=== PATIENT | male | born 1960 | race Caucasian/White ===

== ENCOUNTER → 2016-10-14 | Outpatient (CLI) | payer MEDICARE ==
[2016-10-14 12:29] LABS: ALBUMIN 4.1 GM/DL (3.2-5.2); ALBUMIN/GLOBULIN RATIO 1.41 (1.00-1.93); BILIRUBIN,TOTAL 0.5 MG/DL (0.2-1.0); CALCIUM LEVEL 8.6 MG/DL (8.5-10.1); CREATININE FOR GFR 1.36 MG/DL (0.70-1.30); GLOMERULAR FILTRATION RATE 57.3 (>56); POTASSIUM SERUM 4.7 MEQ/L (3.5-5.1)
== END ==
LOC: M LAB 10:52
PROVIDERS: ATTEND Hospitalist
DX: I10 Essential (primary) hypertension (principal); E03.9 Hypothyroidism, unspecified; E11.9 Type 2 diabetes mellitus without complications; E78.5 Hyperlipidemia, unspecified

== ENCOUNTER 2017-07-06 09:37 | Day surgery (SDC) | payer MEDICARE ==
[~2017-07-06 09:37] MED LIST: LIDOCAINE 2% INJ 100 MG/5 ML SDV (FOR ANES.) As Ordered; PROPOFOL 200 MG/20 ML VIAL As Ordered
[2017-07-06] MEDS ORDERED: NS 1,000 ML IV (10:00)
[2017-07-06] MEDS ORDERED: BISOPROLOL FUMARATE 5 MG TAB As Ordered (10:24)
[2017-07-06] MEDS ORDERED: BISOPROLOL FUMARATE 5 MG TAB PO (10:45)
== END 2017-07-06 12:06 | disposition home or self-care (01) ==
LOC: M OPP 09:37
DX: Z12.11 Encounter for screening for malignant neoplasm of colon (principal); K64.0 First degree hemorrhoids; D12.3 Benign neoplasm of transverse colon; K63.5 Polyp of colon; E10.9 Type 1 diabetes mellitus without complications; E03.9 Hypothyroidism, unspecified; K51.90 Ulcerative colitis, unspecified, without complications; M54.9 Dorsalgia, unspecified; M12.9 Arthropathy, unspecified; F32.9 Major depressive disorder, single episode, unspecified; R06.83 Snoring; I34.0 Nonrheumatic mitral (valve) insufficiency; I51.9 Heart disease, unspecified; E78.00 Pure hypercholesterolemia, unspecified; R01.1 Cardiac murmur, unspecified; Z79.4 Long term (current) use of insulin; Z79.899 Other long term (current) drug therapy; Z86.19 Personal history of other infectious and parasitic diseases; Z95.1 Presence of aortocoronary bypass graft; Z86.79 Personal history of other diseases of the circulatory system; Z87.891 Personal history of nicotine dependence
CPT/HCPCS: 45385

== ENCOUNTER → 2019-08-01 | Outpatient (REF) | payer MEDICARE ==
[~2019-08-01] MED LIST changes: +AMLO5TAB6 PO; +ASPI81TA85 PO; +ATOR40TA75 PO; +BISO5TAB14 PO; +CRES40TA PO; +EZET10TA21 PO; +FIBETAB PO; +GABA600T4 PO; +GEMF600T5 PO; +LANTINJ4 SC; -LIDOCAINE 2% INJ 100 MG/5 ML SDV (FOR ANES.) As Ordered; +LORA10CA PO; +LOSA100T50 PO; +METF10004 PO; +METO1TAB7 PO; +NOVOINJ3 SC; +PREV1CAP PO; -PROPOFOL 200 MG/20 ML VIAL As Ordered; +RANO500T7 PO; +SYNT125T PO; +TIMO0.5S39; +VALS320T3 PO; +VITA-122 PO
[2019-08-01 18:30] LABS: CREATININE, URINE 84.1 MG/DL; MAU/CREAT RATIO 216.4 MCG/MG (0.0-30.0)
== END ==
LOC: M LAB REF 17:35
PROVIDERS: ATTEND Nurse Practitioner Family
DX: E11.65 Type 2 diabetes mellitus with hyperglycemia (principal)

== ENCOUNTER → 2020-08-06 | Outpatient (REF) | payer MEDICARE ==
[~2020-08-06] MED LIST changes: +AMLO1TAB24 PO; -AMLO5TAB6 PO; -ASPI81TA85 PO; +ASPI81TA86 PO
[2020-08-06 17:59] LABS: MAU/CREAT RATIO 247.1 MCG/MG (0.0-30.0)
== END ==
LOC: M LAB REF 16:52
PROVIDERS: ATTEND Nurse Practitioner Family
DX: E11.65 Type 2 diabetes mellitus with hyperglycemia (principal)

== ENCOUNTER → 2021-08-13 | Outpatient (REF) | payer MEDICARE ==
[~2021-08-13] MED LIST changes: +LOSA100T45 PO; -LOSA100T50 PO
[2021-08-13 17:51] LABS: CREATININE, URINE 72.9 MG/DL
== END ==
LOC: M LAB REF 16:47
PROVIDERS: ATTEND Nurse Practitioner Family
DX: E11.65 Type 2 diabetes mellitus with hyperglycemia (principal)

== ENCOUNTER 2022-07-17 08:24 | Day surgery (SDC) | payer MEDICARE ==
[~2022-07-17] VITALS: Ht 177.8 cm; Wt 108.9 kg
[~2022-07-17 08:24] MED LIST changes: +ACET-1349 PO; +BASA100I SC; +BAYE81TA7 PO; +BSS IRRIG/VANCO(10MG)/TOBRA(5MG)/EPINEPH(1:1000-0.5CC)500ML BAG-ORONLY IR ONE; +CEFUROXIME 1MG/0.1ML INTRACAMERAL INJ As Ordered ONE; +CLOP75TA2 PO; +CYCLOPENTOLATE 1% OPHTH SOLN 2ML BTL OD SCH; +HUMA100I3 SC; +INSUHUMDS SC; +IRBE300T12 PO; +LATA0.0015 OU; +LEVO150T7 PO; +LIDOCAINE 1% SDV 5ML VIAL As Ordered ONE; +LIDOCAINE 3.5 % 1ML OPHTH TOPICAL GEL OU ONE; +LOPI600T PO; -LOSA100T45 PO; +LOSA100T46 PO; +MIDAZOLAM INJ 2MG/2ML VIAL As Ordered ONE; +NITR0.4S14 SL; +OFLOXACIN 0.3 % (OCUFLOX) OPTH SOL 5ML OD ONE; +PHENYLEPHRINE 10% OPHTH SOL 5ML OD PRN; +PHENYLEPHRINE 2.5% OPHTH SOL 2ML OD SCH; +ROSU40TA4 PO; +TROPICAMIDE 1% OPHTH SOLN 15ML OD SCH; +XALA0.007 OU; +fentaNYL 100 MCG/2 ML INJECTION As Ordered ONE
[2022-07-17 10:36] VITALS: BP 127/61; TEMP 97.4; O2SAT 94
== END 2022-07-17 10:47 | disposition home or self-care (01) ==
LOC: M SDC 08:24
PROVIDERS: ATTEND Ophthalmology
DX: H25.11 Age-related nuclear cataract, right eye (principal); H40.1111 Primary open-angle glaucoma, right eye, mild stage; Z95.5 Presence of coronary angioplasty implant and graft; I25.2 Old myocardial infarction; I25.10 Atherosclerotic heart disease of native coronary artery without angina pectoris; E11.9 Type 2 diabetes mellitus without complications; Z87.891 Personal history of nicotine dependence; Z79.899 Other long term (current) drug therapy
CPT/HCPCS: 66984; C1783; J0697; J2250; J3010; V2632

== ENCOUNTER 2022-08-20 08:46 | Day surgery (SDC) | payer MEDICARE ==
[~2022-08-20] VITALS: Ht 177.8 cm; Wt 109.3 kg
[~2022-08-20 08:46] MED LIST changes: -CYCLOPENTOLATE 1% OPHTH SOLN 2ML BTL OD SCH; -MIDAZOLAM INJ 2MG/2ML VIAL As Ordered ONE; -OFLOXACIN 0.3 % (OCUFLOX) OPTH SOL 5ML OD ONE; +OFLOXACIN 0.3 % (OCUFLOX) OPTH SOL 5ML OS ONE; -PHENYLEPHRINE 10% OPHTH SOL 5ML OD PRN; +PHENYLEPHRINE 10% OPHTH SOL 5ML OS PRN; -PHENYLEPHRINE 2.5% OPHTH SOL 2ML OD SCH; -TROPICAMIDE 1% OPHTH SOLN 15ML OD SCH; -fentaNYL 100 MCG/2 ML INJECTION As Ordered ONE
[2022-08-20] MEDS ORDERED: fentaNYL 100 MCG/2 ML INJECTION As Ordered ONE (09:06)
[2022-08-20] MEDS ORDERED: MIDAZOLAM INJ 2MG/2ML VIAL As Ordered ONE (09:06)
[2022-08-20] MEDS: TROPICAMIDE 1% OPHTH SOLN 15ML OS SCH ×3 (09:12→09:17)
[2022-08-20] MEDS: PHENYLEPHRINE 2.5% OPHTH SOL 2ML OS SCH ×3 (09:13→09:17)
[2022-08-20] MEDS: CYCLOPENTOLATE 1% OPHTH SOLN 2ML BTL OS SCH ×3 (09:13→09:17)
[2022-08-20 10:15] VITALS: BP 144/63; TEMP 97.5; O2SAT 97
== END 2022-08-20 10:53 | disposition home or self-care (01) ==
LOC: M SDC 08:46
PROVIDERS: ATTEND Ophthalmology
DX: H25.12 Age-related nuclear cataract, left eye (principal); H40.812 Glaucoma with increased episcleral venous pressure, left eye; Z95.5 Presence of coronary angioplasty implant and graft; I25.10 Atherosclerotic heart disease of native coronary artery without angina pectoris; I25.2 Old myocardial infarction; E11.9 Type 2 diabetes mellitus without complications; I10 Essential (primary) hypertension; E78.5 Hyperlipidemia, unspecified; Z79.899 Other long term (current) drug therapy; Z79.01 Long term (current) use of anticoagulants; Z79.890 Hormone replacement therapy; E03.9 Hypothyroidism, unspecified
CPT/HCPCS: 66982; C1783; J0697; J2250; J3010; V2632

== ENCOUNTER → 2022-09-04 | Outpatient (REF) | payer MEDICARE ==
[~2022-09-04] MED LIST changes: -BSS IRRIG/VANCO(10MG)/TOBRA(5MG)/EPINEPH(1:1000-0.5CC)500ML BAG-ORONLY IR ONE; -CEFUROXIME 1MG/0.1ML INTRACAMERAL INJ As Ordered ONE; -LIDOCAINE 1% SDV 5ML VIAL As Ordered ONE; -LIDOCAINE 3.5 % 1ML OPHTH TOPICAL GEL OU ONE; -OFLOXACIN 0.3 % (OCUFLOX) OPTH SOL 5ML OS ONE; -PHENYLEPHRINE 10% OPHTH SOL 5ML OS PRN
[2022-09-04 18:59] LABS: CREATININE, URINE 93.3 MG/DL; MAU/CREAT RATIO 113.6 MCG/MG (0.0-30.0)
== END ==
LOC: M LAB REF 17:02
PROVIDERS: ATTEND Nurse Practitioner Family
DX: E11.65 Type 2 diabetes mellitus with hyperglycemia (principal)

== ENCOUNTER → 2024-09-28 | Outpatient (REF) | payer MEDICARE ==
[~2024-09-28] MED LIST changes: +GABA-1490 PO; -GABA600T4 PO; -ROSU40TA4 PO; +ROSU40TA81 PO; -TIMO0.5S39; +TIMO5DRO9
[2024-09-28 20:35] LABS: IRON (FE) 81.0 UG/DL (65-175); PERCENT SATURATION 22.6 % (19.7-50.0); TOTAL PROTEIN,RANDOM URINE 44.0 MG/DL (0.0-14.0)
== END ==
LOC: M LAB REF 16:51
PROVIDERS: ATTEND Internal Medicine Nephrology
DX: Z79.899 Other long term (current) drug therapy (principal); D63.1 Anemia in chronic kidney disease